=== PATIENT | male | born 1965 | race African-American/Black ===

== ENCOUNTER 2021-09-21 16:31 | Outpatient (CLI) | payer OTHER | END 2021-09-21 16:32 | disposition home or self-care (01) | LOC: BICRAD 16:31 | PROVIDERS: ATTEND Internal Medicine | DX: Z02.71 Encounter for disability determination (principal); M17.0 Bilateral primary osteoarthritis of knee; M47.816 Spondylosis without myelopathy or radiculopathy, lumbar region | CPT/HCPCS: 72100 ==

== ENCOUNTER 2022-02-08 10:12 | Outpatient (CLI) | payer OTHER | END 2022-02-08 10:13 | disposition home or self-care (01) | LOC: RAD-FRANK 10:12 | PROVIDERS: ATTEND Family Medicine | DX: R63.4 Abnormal weight loss (principal) | CPT/HCPCS: 71046 ==